=== PATIENT | female | born 1940 | race Caucasian/White ===

== ENCOUNTER 2017-01-14 12:39 | Emergency (ER) | payer OTHER ==
[~2017-01-14] VITALS: Ht 152.4 cm; Wt 59.5 kg
[2017-01-14 12:53] VITALS: Ht 152.4 cm; Wt 59.5 kg
[2017-01-14] MEDS ORDERED: KETOROLAC 15 MG INJ IV STA (13:11)
[2017-01-14] MEDS ORDERED: DIAZEPAM 5 MG/ML SYG IV ONE (13:30)
--- NOTE | 2017-01-14 13:33 | ERD ---
ER Documentation Chief Complaint Chief Complaint sob, neck soreness, nausea, indigestion, htn HPI This is a 76-year-old female with a past medical history of poorly controlled hypertension, recently had an increase dose of losartan, diabetes for which she was recently stopped on her Metformin who is presenting with 1-2 weeks of shoulder and neck muscle aches, slight dizziness, indigestion and shortness of breath. The patient felt that the indigestion and lightheadedness got worse today, so she came to the emergency department for further evaluation. En route , the patient reports that her indigestion improved. The patient currently does not endorse any indigestion or chest pain. She also reports the lightheadedness has also improved. Her primary complaints at this time are aching muscles in her neck and dyspnea. The patient is an anxious woman and reports that she has a lot of stress and worries in her life. She worries a lot about her blood pressure. She was recently started on an increased dose of losartan daily, but she does not think that it is been working. The patient also reports getting a flu shot approximately 2 weeks ago, and she states that she has had soreness since then. The patient denies feeling sick recently. The patient denies fever or chills. The patient has had no headache or vision changes. The patient does not endorse back pain. The patient has no chest pain currently. The patient denies nausea or vomiting. The patient denies abdominal pain or changes to bowel movements or urination. The patient has had no focal deficits. The patient has had no weakness or numbness or tingling to the face or extremities. ROS All systems reviewed and are negative except as per history of present illness. Medications Home Meds Reported Medications Aspirin (Low Dose Aspirin) 81 Mg Tablet.dr, 81 MG PO DAILY, #30 TAB 01/14/17 Simvastatin* (Zocor*) 20 Mg Tablet, 20 MG PO QHS, #30 TAB 01/14/17 Metoprolol Succinate* (Toprol XL*) 100 Mg Tab.sr.24h, 100 MG PO DAILY, #30 TAB 01/14/17 Pantoprazole* (Protonix*) 40 Mg Tablet.dr, 40 MG PO DAILY, TAB 01/14/17 Losartan Potassium* (Losartan Potassium*) 100 Mg Tablet, 100 MG PO DAILY, TAB 01/14/17 Allergies Allergies: Coded Allergies: No Known Allergy (Unverified , 01/14/17) PMhx/Soc History of Surgery: No Anesthesia Reaction: No Hx Neurological Disorder: No Hx Respiratory Disorders: No Hx Cardiac Disorders: Yes (HTN) Hx Psychiatric Problems: No Hx Miscellaneous Medical Probl: Yes (DM) Hx Alcohol Use: No Hx Substance Use: No Hx Tobacco Use: No Smoking Status: Never smoker FmHx Family History: diabetes Physical Exam Vitals Vital Signs Date Time Temp Pulse Resp B/P Pulse Ox O2 Delivery O2 Flow Rate FiO2 01/14/17 18:20 98.3 67 16 161/92 99 Room Air 01/14/17 15:00 64 16 148/84 98 Room Air 01/14/17 12:53 98.3 78 22 217/121 97 Physical Exam Vitals: Reviewed, blood pressure is elevated const: No apparent distress, well-developed, well-nourished Head: Atraumatic Eyes: Normal Conjunctiva. Extraocular movements intact. ENT: Normal External Ears, Nose and Mouth. Neck: Full range of motion. ~ No meningismus. Resp: Clear to auscultation bilaterally Cardio: Regular rate and rhythm, no murmurs Abd: Soft, non tender, non distended. Normal bowel sounds Skin: No petechiae or rashes Back: No midline or flank tenderness Ext: No cyanosis, or edema Neur: Awake and alert, oriented 4. Cranial nerves intact. No facial droop. Normal strength and sensation in all extremities. Coordination with finger to nose normal. Psych: Normal Mood and Affect Result Diagram: 01/14/17 1355 01/14/17 1355 Results 24 hrs Laboratory Tests Test 01/14/17 13:55 White Blood Count 11.410^3/ul Red Blood Count 4.9510^6/ul Hemoglobin 15.2g/dl Hematocrit 46.9% Mean Corpuscular Volume 94.7fl Mean Corpuscular Hemoglobin 30.7pg Mean Corpuscular Hemoglobin Concent 32.4g/dl Red Cell Distribution Width 12.6% Platelet Count 19820^3/UL Mean Platelet Volume 11.8fl Neutrophils % 69.6% Lymphocytes % 22.8% Monocytes % 5.5% Eosinophils % 0.9% Basophils % 0.8% Nucleated Red Blood Cells % 0.0/100WBC Neutrophils # 7.910^3/ul Lymphocytes # 2.610^3/ul Monocytes # 0.610^3/ul Eosinophils # 0.110^3/ul Basophils # 0.110^3/ul Nucleated Red Blood Cells # 0.010^3/ul Sodium Level 142mmol/L Potassium Level 4.4mmol/L Chloride Level 104mmol/L Carbon Dioxide Level 27mmol/L Anion Gap 15 Blood Urea Nitrogen 22mg/dl Creatinine 1.24mg/dl Glucose Level 126mg/dl Bedside Glucose 113mg/dL Calcium Level 10.5mg/dl Troponin I < 0.012ng/ml Current Medications Medications (Trade) Dose Ordered Sig/Rogelio Route PRN Reason Start Time Stop Time Status Last Admin Dose Admin Ketorolac Tromethamine (Toradol) 15 mg ONCE STAT IV 01/14/17 13:11 01/14/17 13:13 DC 01/14/17 14:31 Diazepam 2.5 mg 2.5 mg ONCE ONCE IV 01/14/17 13:30 01/14/17 13:31 DC 01/14/17 14:32 Sodium Chloride (NS) 1,000 ml @ 1,000 mls/hr Q1H ONCE IV 01/14/17 16:30 01/14/17 17:29 DC 01/14/17 16:34 Procedures/MDM MDM The patient's presentation warrants further investigation. The patient has a history of poorly controlled hypertension and diabetes, both of which are cardiac risk factors. The patient does endorse mild shortness of breath, and her symptoms could represent an atypical cardiac pathology. She will be worked up for a cardiac pathology. That said, she does not have increased work of breathing in the emergency department. Her lungs are clear to auscultation on exam. She appears quite anxious, but she does not appear dyspneic. The patient endorses neck pain and muscle tightness. She will be given a low-dose Valium for the possibility of muscle tension as well as anxiety. The patient also be given low-dose Toradol for her muscle aches and pains as well. I will wait to give aspirin as I do not have a high suspicion of acute coronary syndrome. LABS The patient's blood work was obtained and reviewed. The patient's CBC shows no leukocytosis or left shift. The patient is afebrile and does not appear systemically ill. I do not suspect a systemic infection. The patient is not anemic today. The patient's platelet count is unremarkable. The patient's CMP shows mild elevation in creatinine. The patient has never been here before, so it is unclear if this is acute or chronic. However, this may be worked up as an outpatient. The patient's calcium is also mildly elevated. She may benefit from IV fluids in the ER. No signs of emergent metabolic or electrolyte abnormality. EKG EKG read by me: Rate/Rhythm: Regular rate and rhythm at a rate of 84 Intervals: Normal CO interval. Widened QRS, that could represent a left bundle branch block. Normal QTC. [place]: Left axis Impression: No obvious evidence of acute ischemia or arrhythmia IMAGING FINDINGS: The trachea is midline. The cardiac silhouette is enlarged and pulmonary vascularity are within normal limits. The lungs are clear. The costophrenic angles are sharp. IMPRESSION: Cardiomegaly. No evidence of acute cardiopulmonary disease. Electronically viewed and signed by Fabricio Ortega Physician on 01/14/2017 14:16 TREATMENT/DISPOSITION The patient appears quite anxious, has stress in her life that she did not detail, and reports tension in her neck and shoulders. She does not appear systemically ill. I have low suspicion for a cardiac etiology given her lack of clinical findings and negative troponin. The patient does have cardiomegaly , likely related to her high blood pressure. The patient was given Toradol and Valium, after which she reports that her symptoms completely improved. She endorsed feeling calm her, which improved her symptoms. She may benefit from benzodiazepine medication as an outpatient, but this should be worked up further and monitored by a primary care physician prior to this medicine being prescribed. The patient was given IV fluids for her elevated calcium and creatinine. Her creatinine is also likely elevated secondary to her ongoing hypertension. This is currently being managed medically as an outpatient. At this time, I feel that the patient stable for discharge. He will need follow -up with his primary care physician in 2-3 days. He will be given strict precautions with which to return to the emergency department. The patient's blood pressure was elevated at greater than 120/80 while in the emergency department. The patient was otherwise stable with no evidence of hypertensive urgency or emergency. The patient will require reevaluation of his blood pressure in 2-3 days, but this may be completed by a primary care physician as an outpatient. He does not require admission for blood pressure control. After obtaining the Valium, the patient's blood pressure significantly improved. There may be a component of elevated blood pressure related to anxiety as well. Departure Diagnosis: Primary Impression: Hypertension Hypertension type: unspecified Qualified Code: I10 - Hypertension, unspecified type Additional Impressions: Myalgia Shortness of breath Kidney disease Condition: Stable MIGUEL GENTILE MD Jan 14, 2017 13:32
[2017-01-14 14:15] LABS: BASOPHIL # 0.1 10^3/ul (0.0-0.1); BASOPHILS % 0.8 % (0.0-2.0); EOSINOPHILS # 0.1 10^3/ul (0.0-0.5); EOSINOPHILS % 0.9 % (0.0-7.0); HEMATOCRIT 46.9 % (37.0-47.0); HEMOGLOBIN 15.2 g/dl (12.0-16.0); LYMPHOCYTES # 2.6 10^3/ul (0.8-2.9); LYMPHOCYTES % 22.8 % (15.0-51.0); MEAN CORPUSCULAR HEMOGLOBIN 30.7 pg (29.0-33.0); MEAN CORPUSCULAR HGB CONC 32.4 g/dl (32.0-37.0); MEAN CORPUSCULAR VOLUME 94.7 fl (82.0-101.0); MEAN PLATELET VOLUME 11.8 fl (7.4-10.4); MONOCYTE # 0.6 10^3/ul (0.3-0.9); MONOCYTES % 5.5 % (0.0-11.0); NEUTROPHIL # 7.9 10^3/ul (1.6-7.5); NEUTROPHILS % 69.6 % (39.0-77.0); PLATELET COUNT 215 10^3/UL (140-415); RED BLOOD COUNT 4.95 10^6/ul (4.20-5.40); RED CELL DISTRIBUTION WIDTH 12.6 % (11.5-14.5); WHITE BLOOD COUNT 11.4 10^3/ul (4.8-10.8)
--- NOTE | 2017-01-14 14:16 | RADRPT ---
PROCEDURE: XR Chest. CLINICAL INDICATION: Chest pain TECHNIQUE: Single portable view of the chest was obtained COMPARISON: No priors for comparison. FINDINGS: The trachea is midline. The cardiac silhouette is enlarged and pulmonary vascularity are within norm al limits. The lungs are clear. The costophrenic angles are sharp. IMPRESSION: 1. Cardiomegaly. No evidence of acute cardiopulmonary disease. RPTAT: AAPP Physician Bin Date Time Electronically viewed and signed by Fabricio Ortega Physician on 01/14/2017 14:16 JL/
[2017-01-14 14:36] LABS: ANION GAP 15 (8-16); BLOOD UREA NITROGEN 22 mg/dl (7-20); CALCIUM 10.5 mg/dl (8.4-10.2); CARBON DIOXIDE 27 mmol/L (21-31); CHLORIDE 104 mmol/L (97-110); CREATININE 1.24 mg/dl (0.44-1.00); GLUCOSE 126 mg/dl (70-220); POTASSIUM 4.4 mmol/L (3.5-5.1); SODIUM 142 mmol/L (135-144)
[2017-01-14] MEDS ORDERED: LOSA100T7 PO (15:13)
[2017-01-14] MEDS ORDERED: PANT40TA3 PO (15:14)
[2017-01-14] MEDS ORDERED: SIMV20TA PO (15:15)
[2017-01-14] MEDS ORDERED: ASPI-664 PO (15:15)
[2017-01-14] MEDS ORDERED: METO-336 PO (15:15)
[2017-01-14 15:17] LABS: TROPONIN-I < 0.012 ng/ml (0.00-0.12)
[2017-01-14] MEDS ORDERED: SOD CHLORIDE 0.9% 1,000 ML IV ONE (16:30)
[2017-01-14 18:20] VITALS: BP 161/92; PULSE 67; RESP 16; TEMP 98.3
== END 2017-01-14 18:21 | disposition home or self-care (01) ==
LOC: E/R 12:39
DX: I12.9 Hypertensive chronic kidney disease with stage 1 through stage 4 chronic kidney disease, or unspecified chronic kidney disease (principal); M79.1 Myalgia; N18.9 Chronic kidney disease, unspecified; E11.9 Type 2 diabetes mellitus without complications; Z79.82 Long term (current) use of aspirin; Z79.84 Long term (current) use of oral hypoglycemic drugs
CPT/HCPCS: 36415; 71010; 80048; 82962; 84484; 85025; 93005; 96374; 96375; 99285; J1885; J3360; J7030